=== PATIENT | male | born 1995 | race Caucasian/White ===

== ENCOUNTER 2016-11-17 17:53 | Emergency (ER) | payer BC ==
[~2016-11-17] VITALS: Ht 182.9 cm; Wt 79.4 kg
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
--- NOTE | 2016-11-17 18:52 | NUR ---
PT WAS SEEN BY DR AGUSTIN. DC, RX AND F/U INSTRUCTIONS GIVEN AND EXPLAINED BY TO PT AND HIS MOTHER.
== END 2016-11-17 18:54 | disposition home or self-care (01) ==
LOC: ER 17:54
DX: S16.1XXA Strain of muscle, fascia and tendon at neck level, initial encounter (principal); S33.5XXA Sprain of ligaments of lumbar spine, initial encounter; S23.3XXA Sprain of ligaments of thoracic spine, initial encounter; V89.2XXA Person injured in unspecified motor-vehicle accident, traffic, initial encounter; Y93.89 Activity, other specified; Y99.8 Other external cause status; Y92.89 Other specified places as the place of occurrence of the external cause
CPT/HCPCS: A4663